=== PATIENT | male | born 1960 | race African-American/Black ===

== ENCOUNTER 2024-01-22 06:32 | Inpatient (IN) | payer MEDICARE, MEDICAID ==
[~2024-01-22] VITALS: Ht 177.8 cm; Wt 103.9 kg
[2024-01-22] VITALS (73 sets, daily range): BP systolic 129–229; BP diastolic 60–114; PULSE 51–114; RESP 16–42; TEMP 97.7–98.7
[~2024-01-22 06:32] MED LIST: ASPI-1079 PO
[2024-01-22] MEDS ORDERED: ALBUTEROL (0.083%) 2.5MG/3ML NEB HHN ONE (06:45)
[2024-01-22] MEDS ORDERED: NOREPINEPHRINE 8 MG in DEXT 5% WATER 242 ML IV PRN (07:15)
[2024-01-22] MEDS: CALCIUM CHLORIDE 1GM/10ML SYR IV ONE (07:24)
[2024-01-22] MEDS: DEXTROSE 50% WATER 50ML SYRINGE IV ONE (07:25)
[2024-01-22] MEDS: SODIUM BICARBONATE 8.4% 1 MEQ/ML 50ML SYR IV ONE (07:25)
[2024-01-22] MEDS: INSULIN REGULAR (HUMULIN R) 1000UNITS/10ML VIAL IV ONE (07:26)
[2024-01-22] MEDS: NOREPINEPHRINE 8MG/250ML PMX 250 ML IV PRN (07:27)
[2024-01-22] MEDS: PIPERACILLIN/TAZO 3.375G/50ML 50 ML IV ONE (07:29)
[2024-01-22] MEDS: FUROSEMIDE 100MG/10ML VIAL IV STA (07:33)
[2024-01-22 07:34] LABS: BASOPHILS % 1.2 % (0.0-2.0); DIFFERENTIAL COMMENT 0; HEMATOCRIT. 36.3 % (42.0-52.0); LYMPHOCYTES % 29.8 % (20.0-50.0); MEAN CORPUSCULAR HGB CONC 30.4 g/dL (31.0-37.0); MEAN CORPUSCULAR VOLUME 98.5 fL (80.0-94.0); MEAN PLATELET VOLUME 9.5 fl (7.4-10.4); PLATELET 121 x1000/uL (130-400); RED BLOOD CELL COUNT 3.68 mill/uL (4.7-6.1); RED CELL DISTRIBUTION WIDTH 19.2 % (11.6-14.6)
[2024-01-22 07:38] LABS: CARBON DIOXIDE 21 mEq/L (21-32); CHLORIDE 103 mEq/L (98-107); POTASSIUM 4.4 mEq/L (3.5-5.1); SODIUM 145 mEq/L (136-145)
[2024-01-22 07:39] LABS: CALCIUM 9.8 mg/dL (8.7-10.4); INR 1.2
[2024-01-22 07:44] LABS: UREA NITROGEN BLOOD 62 mg/dL (9-23)
[2024-01-22 07:56] LABS: CREATININE 12.9 mg/dL (0.6-1.3); GLUCOSE 303 mg/dL (70-105); TROPONIN I HIGH SENSITIVITY 89 ng/L (3.0-53)
[2024-01-22 07:57] LABS: LACTIC ACID 12.4 mmol/L (0.4-2.0)
[2024-01-22] MEDS ORDERED: MIDAZOLAM 100MG/100ML PMX 100 ML IV PRN ×2 (08:00→11:30)
[2024-01-22 08:56] LABS: BG BASE EXCESS -15.9 mmol/L (-2.0-2.0); BG CARBOXYHEMOGLOBIN 0.6 % (0.5-1.5); BG DEOXYHEMOGLOBIN 2.9 % (0.0-5.0); BG FRACTION INSPIRED OXYGEN 100; BG HCO3 ACT 16.3 mmol/L (22.0-26.0); BG METHEMOGLOBIN 0.2 % (0.0-1.5); BG OXYGEN SATURATION 97.1 % (92.0-98.5); BG OXYHEMOGLOBIN 96.3 % (94.0-97.0); BG PCO2 70.3 mmHg (35.0-45.0); BG PH 6.984 (7.350-7.450); BG PO2 143.9 mmHg (75.0-100.0); BG SAMPLE SITE RIGHT RADIAL; BG TOTAL HEMOGLOBIN 13.2 g/dL (12.0-18.0); BG VENT MODE VENT - AC
[2024-01-22] MEDS: VANCOMYCIN 1G PREMIX 200 ML IV ONE (09:21)
[2024-01-22] MEDS ORDERED: PROPOFOL 10MG/ML 100ML 100 ML IV SCH (10:00)
[2024-01-22] MEDS ORDERED: ACETAMINOPHEN 650MG SUPP PR PRN (10:30)
[2024-01-22] MEDS ORDERED: VANCOMYCIN 1G PREMIX 200 ML IV SCH (10:30)
[2024-01-22] MEDS ORDERED: ONDANSETRON HCL 4MG/2ML INJ IV PRN (10:30)
[2024-01-22] MEDS ORDERED: IPRATROPIUM/ALBUTEROL 0.5-3(2.5)MG/3ML NEB HHN PRN (10:30)
[2024-01-22] MEDS: NICARDIPINE 40 MG/200 ML PREMIX 200 ML IV PRN (11:46)
[2024-01-22] MEDS: FENTANYL 2500MCG/250ML PMX 250 ML IV PRN (11:57)
[2024-01-22 12:29] LABS: BG BASE EXCESS -3.5 mmol/L (-2.0-2.0); BG CARBOXYHEMOGLOBIN 0.7 % (0.5-1.5); BG DEOXYHEMOGLOBIN 1.3 % (0.0-5.0); BG FRACTION INSPIRED OXYGEN 90; BG HCO3 ACT 24.4 mmol/L (22.0-26.0); BG METHEMOGLOBIN 0.1 % (0.0-1.5); BG OXYGEN SATURATION 98.7 % (92.0-98.5); BG OXYHEMOGLOBIN 97.9 % (94.0-97.0); BG PCO2 56.6 mmHg (35.0-45.0); BG PH 7.253 (7.350-7.450); BG PO2 149.5 mmHg (75.0-100.0); BG SAMPLE SITE RIGHT RADIAL; BG TOTAL HEMOGLOBIN 13.5 g/dL (12.0-18.0); BG TOTAL RESPIRATORY RATE 27 b/min; BG VENT MODE VENT - AC
[2024-01-22] MEDS: PANTOPRAZOLE SODIUM 40 MG/VIAL IV SCH (12:32)
[2024-01-22] MEDS: VANCOMYCIN 750MG/150ML (BAXTER) IV NR (12:33)
[2024-01-22 13:11] LABS: HEPATITIS B SURFACE ANTIGEN NEGATIVE (Negative)
[2024-01-22 13:31] LABS: HEPATITIS A AB IGM NEGATIVE (Negative)
[2024-01-22 13:32] LABS: HEPATITIS B CORE AB IGM NEGATIVE (Negative); HEPATITIS C AB NON REACTIVE (Neg) (Negative)
[2024-01-22] MEDS: HYDRALAZINE HCL 25MG TABLET PO SCH (14:00)
[2024-01-22 15:09] LABS: BG BASE EXCESS -4.7 mmol/L (-2.0-2.0); BG CARBOXYHEMOGLOBIN 0.1 % (0.5-1.5); BG DEOXYHEMOGLOBIN 1.6 % (0.0-5.0); BG FRACTION INSPIRED OXYGEN 80; BG HCO3 ACT 20.3 mmol/L (22.0-26.0); BG OXYGEN SATURATION 98.4 % (92.0-98.5); BG OXYHEMOGLOBIN 98.3 % (94.0-97.0); BG PCO2 37.4 mmHg (35.0-45.0); BG PH 7.352 (7.350-7.450); BG PO2 128.5 mmHg (75.0-100.0); BG SAMPLE SITE RIGHT RADIAL; BG TOTAL HEMOGLOBIN 12.9 g/dL (12.0-18.0); BG TOTAL RESPIRATORY RATE 32 b/min; BG VENT MODE VENT - AC
[2024-01-22] MEDS: ENOXAPARIN 40MG/0.4ML SYR SUBCUT SCH (15:30)
[2024-01-22] MEDS ORDERED: LORAZEPAM 2MG/ML INJ IV PRN (17:30)
[2024-01-22 17:53] LABS: CREATINE KINASE MB FRACTION 12.7 ng/mL (0.5-3.6)
[2024-01-22] MEDS: LEVETIRACETAM 500MG PREMIX 100 ML IV NR (18:16)
[2024-01-22] MEDS: LORAZEPAM 2MG/ML INJ IV NR (18:58)
[2024-01-22] MEDS: NICARDIPINE 50 MG in SODIUM CHLORIDE 0.9% 230 ML IV PRN (20:21)
[2024-01-22] MEDS: PIPERACILLIN/TAZO 3.375G/50ML 50 ML IV SCH (21:48)
[2024-01-22] MEDS: PROPOFOL 10MG/ML 100ML 100 ML IV PRN (21:56)
[2024-01-22] MEDS: LEVETIRACETAM 1000MG PREMIX 100 ML IV SCH (22:32)
[2024-01-22 23:12] LABS: CREATINE KINASE MB FRACTION 15.3 ng/mL (0.5-3.6)
[2024-01-23] VITALS (102 sets, daily range): BP systolic 139–186; BP diastolic 61–123; PULSE 95–113; RESP 0–35; TEMP 98.4–99.1
[2024-01-23 05:20] LABS: HEMATOCRIT. 37.3 % (42.0-52.0); HEMOGLOBIN. 11.9 g/dL (14.0-18.0); MEAN CORPUSCULAR HEMOGLOBIN 29.9 pg (28.0-32.0); MEAN CORPUSCULAR HGB CONC 31.9 g/dL (31.0-37.0); MEAN CORPUSCULAR VOLUME 93.7 fL (80.0-94.0); MEAN PLATELET VOLUME 9.4 fl (7.4-10.4); PLATELET 119 x1000/uL (130-400); RED BLOOD CELL COUNT 3.98 mill/uL (4.7-6.1); RED CELL DISTRIBUTION WIDTH 19.2 % (11.6-14.6); WHITE BLOOD COUNT 13.4 x1000/uL (4.5-11.0)
[2024-01-23 05:21] LABS: DIFFERENTIAL COMMENT 1
[2024-01-23 05:31] LABS: POTASSIUM 4.9 mEq/L (3.5-5.1)
[2024-01-23 05:32] LABS: CALCIUM 8.8 mg/dL (8.7-10.4)
[2024-01-23 05:38] LABS: THYROID STIMULATING HORMONE 2.24 uIU/mL (0.55-4.78)
[2024-01-23 05:46] LABS: CREATININE 10.4 mg/dL (0.6-1.3)
[2024-01-23 06:05] LABS: PLATELET ESTIMATE NORMAL; TARGET CELLS 1+
[2024-01-23 06:06] LABS: TEAR DROP CELLS 1+; TOXIC VACUOLATION 1+
[2024-01-23 07:56] LABS: BG CARBOXYHEMOGLOBIN 0.3 % (0.5-1.5); BG FRACTION INSPIRED OXYGEN 80; BG METHEMOGLOBIN 0.1 % (0.0-1.5); BG OXYHEMOGLOBIN 99.6 % (94.0-97.0); BG PCO2 29.2 mmHg (35.0-45.0); BG PH 7.515 (7.350-7.450); BG PO2 326.5 mmHg (75.0-100.0); BG SAMPLE SITE RIGHT RADIAL; BG TOTAL HEMOGLOBIN 12.6 g/dL (12.0-18.0); BG VENT MODE VENT - AC
[2024-01-23] MEDS: FOLIC ACID/VITAMIN B COMP W-C TABLET PO SCH (09:18)
[2024-01-23] MEDS: LANTHANUM CARBONATE 500MG CHEW TABLET PO SCH (09:43)
[2024-01-23] MEDS: ISOSORBIDE MONONITRATE 30MG TABLET SR 24HR PO SCH (11:31)
[2024-01-23 17:23] LABS: INR 1.2; PROTHROMBIN TIME 13.1 sec (9.6-11.0)
[2024-01-23] MEDS: HYDRALAZINE HCL 25MG TABLET PO SCH (18:26)
[2024-01-24] VITALS (110 sets, daily range): BP systolic 114–209; BP diastolic 59–84; PULSE 77–118; RESP 16–29; TEMP 97.5–98.9
[2024-01-24] MEDS: PROPOFOL 10MG/ML 100ML 100 ML IV PRN (00:12)
[2024-01-24 05:02] LABS: HEMATOCRIT. 34.2 % (42.0-52.0); HEMOGLOBIN. 11.1 g/dL (14.0-18.0); MEAN CORPUSCULAR HEMOGLOBIN 30.1 pg (28.0-32.0); MEAN CORPUSCULAR HGB CONC 32.4 g/dL (31.0-37.0); MEAN PLATELET VOLUME 9.5 fl (7.4-10.4); PLATELET 122 x1000/uL (130-400); RED BLOOD CELL COUNT 3.68 mill/uL (4.7-6.1); WHITE BLOOD COUNT 12.7 x1000/uL (4.5-11.0)
[2024-01-24 05:45] LABS: DIFFERENTIAL COMMENT 1
[2024-01-24 05:48] LABS: CALCIUM 8.2 mg/dL (8.7-10.4)
[2024-01-24 05:54] LABS: CREATININE 11.9 mg/dL (0.6-1.3)
[2024-01-24] MEDS: PROPOFOL 10MG/ML 100ML 100 ML IV ONE (08:11)
[2024-01-24 09:38] LABS: BG BASE EXCESS -3.1 mmol/L (-2.0-2.0); BG CARBOXYHEMOGLOBIN 0.7 % (0.5-1.5); BG DEOXYHEMOGLOBIN 1.9 % (0.0-5.0); BG FRACTION INSPIRED OXYGEN 40; BG METHEMOGLOBIN 0.1 % (0.0-1.5); BG OXYGEN SATURATION 98.1 % (92.0-98.5); BG OXYHEMOGLOBIN 97.3 % (94.0-97.0); BG PCO2 34.5 mmHg (35.0-45.0); BG PH 7.402 (7.350-7.450); BG PO2 118.2 mmHg (75.0-100.0); BG SAMPLE SITE RIGHT RADIAL; BG TOTAL HEMOGLOBIN 13.3 g/dL (12.0-18.0); BG VENT MODE VENT - AC
[2024-01-24] MEDS ORDERED: LIDOCAINE HCL 1% 10 MG/ML 10ML VIAL ONE (09:55)
[2024-01-24 13:15] LABS: POTASSIUM 5.2 mEq/L (3.5-5.1)
[2024-01-24] MEDS ORDERED: VANCOMYCIN 1.5GM/250ML IV NR (15:00)
[2024-01-24 16:04] LABS: ANISOCYTOSIS 1+; PLATELET ESTIMATE DECREASED
[2024-01-24] MEDS: LORAZEPAM 2MG/ML INJ IV PRN (16:14)
[2024-01-24] MEDS: CEFAZOLIN 1000MG PREMIX 50ML IV SCH (19:45)
[2024-01-24] MEDS: LEVETIRACETAM 1,500 MG in SODIUM CHLORIDE 0.9% 100 ML IV SCH (21:44)
[2024-01-25] VITALS (99 sets, daily range): BP systolic 127–243; BP diastolic 62–115; PULSE 89–117; RESP 18–31; TEMP 98.4–98.9
[2024-01-25] MEDS: PROPOFOL 10MG/ML 100ML 100 ML IV PRN (01:10)
[2024-01-25 04:50] LABS: CHLORIDE 101 mEq/L (98-107); HEMATOCRIT. 32.9 % (42.0-52.0); HEMOGLOBIN. 10.9 g/dL (14.0-18.0); MEAN CORPUSCULAR HEMOGLOBIN 30.6 pg (28.0-32.0); MEAN CORPUSCULAR HGB CONC 33.1 g/dL (31.0-37.0); MEAN CORPUSCULAR VOLUME 92.2 fL (80.0-94.0); MEAN PLATELET VOLUME 9.8 fl (7.4-10.4); PLATELET 125 x1000/uL (130-400); RED BLOOD CELL COUNT 3.56 mill/uL (4.7-6.1); RED CELL DISTRIBUTION WIDTH 18.6 % (11.6-14.6); SODIUM 137 mEq/L (136-145); WHITE BLOOD COUNT 11.4 x1000/uL (4.5-11.0)
[2024-01-25 04:51] LABS: CALCIUM 7.9 mg/dL (8.7-10.4); CARBON DIOXIDE 24 mEq/L (21-32); DIFFERENTIAL COMMENT 1
[2024-01-25 04:56] LABS: GLUCOSE 122 mg/dL (70-105); UREA NITROGEN BLOOD 83 mg/dL (9-23)
[2024-01-25 05:05] LABS: CREATININE 11.5 mg/dL (0.6-1.3)
[2024-01-25 05:06] LABS: POTASSIUM 5.5 mEq/L (3.5-5.1)
[2024-01-25] MEDS ORDERED: CEFAZOLIN SODIUM 1000MG/VIAL IV SCH (09:00)
[2024-01-25 13:14] LABS: TROPONIN I HIGH SENSITIVITY 188 ng/L (3.0-53)
[2024-01-25 16:41] LABS: BG BASE EXCESS -2.6 mmol/L (-2.0-2.0); BG CARBOXYHEMOGLOBIN 0.1 % (0.5-1.5); BG DEOXYHEMOGLOBIN 7.1 % (0.0-5.0); BG FRACTION INSPIRED OXYGEN 40; BG HCO3 ACT 22.1 mmol/L (22.0-26.0); BG METHEMOGLOBIN 0.3 % (0.0-1.5); BG OXYGEN SATURATION 92.9 % (92.0-98.5); BG OXYHEMOGLOBIN 92.5 % (94.0-97.0); BG PCO2 37.9 mmHg (35.0-45.0); BG PH 7.383 (7.350-7.450); BG PO2 72.2 mmHg (75.0-100.0); BG SAMPLE SITE RIGHT RADIAL; BG TOTAL HEMOGLOBIN 13.2 g/dL (12.0-18.0); BG VENT MODE VENT - AC
[2024-01-25] MEDS: ISOSORBIDE MONONITRATE 30MG TABLET SR 24HR PO SCH (16:50)
[2024-01-25 18:42] LABS: PLATELET ESTIMATE NORMAL
[2024-01-26] VITALS (97 sets, daily range): BP systolic 145–214; BP diastolic 47–89; PULSE 91–114; RESP 16–30; TEMP 97.3–99
[2024-01-26] MEDS: PROPOFOL 10MG/ML 100ML 100 ML IV PRN (00:22)
[2024-01-26 05:36] LABS: POTASSIUM 5.9 mEq/L (3.5-5.1)
[2024-01-26 05:37] LABS: CALCIUM 7.7 mg/dL (8.7-10.4)
[2024-01-26 05:49] LABS: CREATININE 12.7 mg/dL (0.6-1.3)
[2024-01-26 07:55] LABS: BASOPHILS % 0.3 % (0.0-2.0); DIFFERENTIAL COMMENT 0; EOSINOPHILS % 2.8 % (0.0-5.0); HEMATOCRIT. 32.8 % (42.0-52.0); HEMOGLOBIN. 10.8 g/dL (14.0-18.0); MEAN CORPUSCULAR HEMOGLOBIN 30.4 pg (28.0-32.0); MEAN CORPUSCULAR HGB CONC 32.9 g/dL (31.0-37.0); MEAN CORPUSCULAR VOLUME 92.6 fL (80.0-94.0); MEAN PLATELET VOLUME 9.5 fl (7.4-10.4); MONOCYTES % 9.8 % (2.0-8.0); NEUTROPHILS % 77.1 % (40.0-76.0); PLATELET 129 x1000/uL (130-400); RED BLOOD CELL COUNT 3.54 mill/uL (4.7-6.1); RED CELL DISTRIBUTION WIDTH 18.7 % (11.6-14.6); WHITE BLOOD COUNT 8.3 x1000/uL (4.5-11.0)
[2024-01-26] MEDS ORDERED: ISOSORBIDE MONONITRATE 60MG TABLET SR 24HR PO SCH (09:00)
[2024-01-26] MEDS: NIFEDIPINE XL 60MG TAB PO SCH (10:20)
[2024-01-26 11:44] LABS: BG BASE EXCESS -0.7 mmol/L (-2.0-2.0); BG CARBOXYHEMOGLOBIN 0.3 % (0.5-1.5); BG DEOXYHEMOGLOBIN 2.6 % (0.0-5.0); BG FRACTION INSPIRED OXYGEN 40; BG HCO3 ACT 23.8 mmol/L (22.0-26.0); BG METHEMOGLOBIN 0.1 % (0.0-1.5); BG OXYGEN SATURATION 97.4 % (92.0-98.5); BG PCO2 38.6 mmHg (35.0-45.0); BG PH 7.408 (7.350-7.450); BG PO2 103.8 mmHg (75.0-100.0); BG SAMPLE SITE RIGHT RADIAL; BG TOTAL HEMOGLOBIN 11.6 g/dL (12.0-18.0); BG VENT MODE VENT - AC
[2024-01-26] MEDS: ISOSORBIDE DINITRATE 20MG TABLET PO SCH (12:36)
[2024-01-26 13:03] LABS: POTASSIUM 5.1 mEq/L (3.5-5.1)
[2024-01-26] MEDS: HYDRALAZINE HCL 100MG TABLET PO SCH (13:43)
[2024-01-26] MEDS ORDERED: IPRATROPIUM/ALBUTEROL 0.5-3(2.5)MG/3ML NEB HHN PRN (13:45)
[2024-01-27] VITALS (105 sets, daily range): BP systolic 146–207; BP diastolic 49–82; PULSE 88–113; RESP 0–32; TEMP 97.4–98.9; O2SAT 96
[2024-01-27 05:14] LABS: HEMATOCRIT. 30.1 % (42.0-52.0); MEAN CORPUSCULAR HEMOGLOBIN 30.3 pg (28.0-32.0); MEAN CORPUSCULAR HGB CONC 33.1 g/dL (31.0-37.0); MEAN CORPUSCULAR VOLUME 91.7 fL (80.0-94.0); MEAN PLATELET VOLUME 9.6 fl (7.4-10.4); PLATELET 142 x1000/uL (130-400); RED BLOOD CELL COUNT 3.28 mill/uL (4.7-6.1); RED CELL DISTRIBUTION WIDTH 18.3 % (11.6-14.6)
[2024-01-27] MEDS: PROPOFOL 10MG/ML 100ML 100 ML IV PRN (05:53)
[2024-01-27 06:29] LABS: DIFFERENTIAL COMMENT 1
[2024-01-27 07:29] LABS: POTASSIUM 5.3 mEq/L (3.5-5.1)
[2024-01-27 07:31] LABS: CALCIUM 8.2 mg/dL (8.7-10.4)
[2024-01-27] MEDS ORDERED: NIFEDIPINE XL 90MG TAB PO SCH (09:00)
[2024-01-27 09:04] LABS: CREATININE 10.3 mg/dL (0.6-1.3)
[2024-01-27] MEDS: AMLODIPINE 10MG TABLET PO SCH (09:32)
[2024-01-27 15:12] LABS: ANISOCYTOSIS 2+; NUCLEATED RED BLOOD CELLS 1 /100 WBC; PLATELET ESTIMATE NORMAL
[2024-01-27] MEDS: CARVEDILOL 6.25 MG TABLET PO SCH (17:59)
[2024-01-27] MEDS: ISOSORBIDE DINITRATE 20MG TABLET PO SCH (18:00)
[2024-01-28] VITALS (92 sets, daily range): BP systolic 133–226; BP diastolic 60–113; PULSE 89–118; RESP 0–28; TEMP 97.5–99.2
[2024-01-28 05:27] LABS: DIFFERENTIAL COMMENT 1; HEMATOCRIT. 33.6 % (42.0-52.0); HEMOGLOBIN. 10.9 g/dL (14.0-18.0); MEAN CORPUSCULAR HEMOGLOBIN 30.1 pg (28.0-32.0); MEAN CORPUSCULAR HGB CONC 32.4 g/dL (31.0-37.0); MEAN CORPUSCULAR VOLUME 92.6 fL (80.0-94.0); MEAN PLATELET VOLUME 9.5 fl (7.4-10.4); PLATELET 163 x1000/uL (130-400); RED BLOOD CELL COUNT 3.63 mill/uL (4.7-6.1); RED CELL DISTRIBUTION WIDTH 18.3 % (11.6-14.6); WHITE BLOOD COUNT 8.2 x1000/uL (4.5-11.0)
[2024-01-28 05:43] LABS: POTASSIUM 5.1 mEq/L (3.5-5.1)
[2024-01-28 05:44] LABS: CALCIUM 8.5 mg/dL (8.7-10.4)
[2024-01-28 05:50] LABS: CREATININE 9.4 mg/dL (0.6-1.3)
[2024-01-28] MEDS: DOXAZOSIN MESYLATE 2MG TABLET PO SCH (09:51)
[2024-01-28 10:51] LABS: ANISOCYTOSIS 2+; PLATELET ESTIMATE NORMAL
[2024-01-28] MEDS: CARVEDILOL 12.5MG TABLET PO SCH (17:38)
[2024-01-29] VITALS (97 sets, daily range): BP systolic 112–215; BP diastolic 59–112; PULSE 82–118; RESP 0–25; TEMP 97.9–99.3
[2024-01-29 05:02] LABS: HEMOGLOBIN. 9.9 g/dL (14.0-18.0); MEAN CORPUSCULAR HEMOGLOBIN 30.1 pg (28.0-32.0); MEAN CORPUSCULAR VOLUME 94.2 fL (80.0-94.0); MEAN PLATELET VOLUME 9.3 fl (7.4-10.4); PLATELET 159 x1000/uL (130-400); RED BLOOD CELL COUNT 3.29 mill/uL (4.7-6.1); RED CELL DISTRIBUTION WIDTH 18.3 % (11.6-14.6); WHITE BLOOD COUNT 11.4 x1000/uL (4.5-11.0)
[2024-01-29 05:05] LABS: DIFFERENTIAL COMMENT 1
[2024-01-29 05:09] LABS: POTASSIUM 4.5 mEq/L (3.5-5.1)
[2024-01-29 05:10] LABS: CALCIUM 8.6 mg/dL (8.7-10.4)
[2024-01-29 06:01] LABS: PLATELET ESTIMATE NORMAL
[2024-01-29 06:02] LABS: OVALOCYTES 1+; TARGET CELLS 1+
[2024-01-29 06:03] LABS: CREATININE 10.4 mg/dL (0.6-1.3)
[2024-01-29] MEDS ORDERED: ATROPINE SULFATE 1MG/10ML SYR ONE (09:00)
[2024-01-30] VITALS (81 sets, daily range): BP systolic 100–205; BP diastolic 47–114; PULSE 81–122; RESP 0–42; TEMP 97.1–98.5
[2024-01-30 05:21] LABS: BASOPHILS % 0.4 % (0.0-2.0); EOSINOPHILS % 3.3 % (0.0-5.0); HEMATOCRIT. 31.8 % (42.0-52.0); HEMOGLOBIN. 10.5 g/dL (14.0-18.0); LYMPHOCYTES % 9.8 % (20.0-50.0); MEAN CORPUSCULAR HEMOGLOBIN 30.3 pg (28.0-32.0); MEAN CORPUSCULAR HGB CONC 33.1 g/dL (31.0-37.0); MEAN CORPUSCULAR VOLUME 91.6 fL (80.0-94.0); MONOCYTES % 8.8 % (2.0-8.0); NEUTROPHILS % 77.7 % (40.0-76.0); PLATELET 224 x1000/uL (130-400); RED BLOOD CELL COUNT 3.48 mill/uL (4.7-6.1); RED CELL DISTRIBUTION WIDTH 17.7 % (11.6-14.6)
[2024-01-30 05:28] LABS: CALCIUM 8.8 mg/dL (8.7-10.4)
[2024-01-30 07:33] LABS: CREATININE 9.8 mg/dL (0.6-1.3)
[2024-01-30] MEDS: LORAZEPAM 2MG/ML INJ IV PRN (08:08)
[2024-01-31] VITALS (35 sets, daily range): BP systolic 33–173; BP diastolic 14–80; PULSE 33–118; RESP 0–36; TEMP 98.3–98.5
[2024-01-31 04:49] LABS: BASOPHILS % 0.5 % (0.0-2.0); DIFFERENTIAL COMMENT 0; HEMATOCRIT. 30.8 % (42.0-52.0); HEMOGLOBIN. 10.2 g/dL (14.0-18.0); LYMPHOCYTES % 11.2 % (20.0-50.0); MEAN CORPUSCULAR HEMOGLOBIN 30.5 pg (28.0-32.0); MEAN CORPUSCULAR HGB CONC 33.2 g/dL (31.0-37.0); MEAN CORPUSCULAR VOLUME 91.8 fL (80.0-94.0); MEAN PLATELET VOLUME 9.6 fl (7.4-10.4); MONOCYTES % 10.7 % (2.0-8.0); NEUTROPHILS % 73.6 % (40.0-76.0); PLATELET 249 x1000/uL (130-400); RED BLOOD CELL COUNT 3.35 mill/uL (4.7-6.1); RED CELL DISTRIBUTION WIDTH 17.8 % (11.6-14.6)
[2024-01-31 04:58] LABS: POTASSIUM 3.8 mEq/L (3.5-5.1)
[2024-01-31 04:59] LABS: CALCIUM 8.9 mg/dL (8.7-10.4)
[2024-01-31 05:23] LABS: CREATININE 11.4 mg/dL (0.6-1.3)
== END 2024-01-31 09:18 | DRG 207 ==
LOC: ER 06:32 → EDBEDREQ 08:32 → EDBEDREQSVC 08:33 → MICUSO 08:37
PROVIDERS: ADMIT Internal Medicine; ATTEND Internal Medicine
PROC: 06HY33Z Insertion of Infusion Device into Lower Vein, Percutaneous Approach (ICD-10-PCS; principal; 2024-01-22)
PROC: 5A1955Z Respiratory Ventilation, Greater than 96 Consecutive Hours (ICD-10-PCS; 2024-01-22)
PROC: B54BZZA Ultrasonography of Right Lower Extremity Veins, Guidance (ICD-10-PCS; 2024-01-22)
PROC: 0BH17EZ Insertion of Endotracheal Airway into Trachea, Via Natural or Artificial Opening (ICD-10-PCS; 2024-01-22)
PROC: 5A1D70Z Performance of Urinary Filtration, Intermittent, Less than 6 Hours Per Day (ICD-10-PCS; 2024-01-22)
PROC: 4A00X4Z Measurement of Central Nervous Electrical Activity, External Approach (ICD-10-PCS; 2024-01-23)
PROC: 02HV33Z Insertion of Infusion Device into Superior Vena Cava, Percutaneous Approach (ICD-10-PCS; 2024-01-24)
PROC: B548ZZA Ultrasonography of Superior Vena Cava, Guidance (ICD-10-PCS; 2024-01-24)
PROC: 5A1D70Z Performance of Urinary Filtration, Intermittent, Less than 6 Hours Per Day (ICD-10-PCS; 2024-01-24)
PROC: 4A00X4Z Measurement of Central Nervous Electrical Activity, External Approach (ICD-10-PCS; 2024-01-26)
PROC: 5A1D70Z Performance of Urinary Filtration, Intermittent, Less than 6 Hours Per Day (ICD-10-PCS; 2024-01-26)
PROC: 5A1D70Z Performance of Urinary Filtration, Intermittent, Less than 6 Hours Per Day (ICD-10-PCS; 2024-01-27)
PROC: 5A1D70Z Performance of Urinary Filtration, Intermittent, Less than 6 Hours Per Day (ICD-10-PCS; 2024-01-29)
DX: J96.01 Acute respiratory failure with hypoxia (principal); I21.4 Non-ST elevation (NSTEMI) myocardial infarction; J18.9 Pneumonia, unspecified organism; N18.6 End stage renal disease; E87.20 Acidosis, unspecified; I13.2 Hypertensive heart and chronic kidney disease with heart failure and with stage 5 chronic kidney disease, or end stage renal disease; I16.1 Hypertensive emergency; G93.40 Encephalopathy, unspecified; J96.02 Acute respiratory failure with hypercapnia; Z66 Do not resuscitate; I46.9 Cardiac arrest, cause unspecified; G40.409 Other generalized epilepsy and epileptic syndromes, not intractable, without status epilepticus; B95.61 Methicillin susceptible Staphylococcus aureus infection as the cause of diseases classified elsewhere; D64.9 Anemia, unspecified; Q38.2 Macroglossia; D69.6 Thrombocytopenia, unspecified; E87.5 Hyperkalemia; I50.9 Heart failure, unspecified; D72.829 Elevated white blood cell count, unspecified; I48.91 Unspecified atrial fibrillation; E11.22 Type 2 diabetes mellitus with diabetic chronic kidney disease; E78.00 Pure hypercholesterolemia, unspecified; I25.10 Atherosclerotic heart disease of native coronary artery without angina pectoris; Z51.5 Encounter for palliative care; Z99.2 Dependence on renal dialysis; Z79.899 Other long term (current) drug therapy
CPT/HCPCS: 31500; 36415; 36573; 36600; 71045; 74018; 80048; 80051; 80202; 82375; 82550; 82553; 82805; 82962; 83605; 84132; 84145; 84443; 84478; 84484; 85025; 86705; 86709; 87070; 87077; 87186; 87340; 87804; 90935; 93005; 93306; 93970; 94003; 94644; 95816; 99291; C1725; C9113; J0461; J0690; J1650; J1940; J1953; J2060; J2250; J2470; J2543; J2704; J3010; J3370; J3490; J7050